=== PATIENT | female | born 1995 | race Caucasian/White ===

== ENCOUNTER → 2018-04-13 | Outpatient (CLI) | payer BC ==
--- NOTE | 2018-04-13 15:59 | US ---
EXAMINATION TYPE: US pelvic complete DATE OF EXAM: 04/13/2018 COMPARISON: NONE CLINICAL HISTORY: R10.2 Pelvic perineal pain. Recent UTI, pelvic and lower back pain with occasiona l sharp pains x 2 to 3 weeks TECHNIQUE: . Transabdominal sonographic images of the pelvis were acquired. Date of LMP: 04/04/2018 EXAM MEASUREMENTS: Uterus: 7.2 x 2.7 x 4.1 cm Endometrial Stripe: 0.5 cm Right Ovary: 3.3 x 1.8 x 2.5 cm Left Ovary: 3.3 x 1.5 x 2.3 cm 1. Uterus: anteverted, wnl 2. Endometrium: wnl 3. Right Ovary: wnl 4. Left Ovary: wnl 5. Bilateral Adnexa: wnl 6. Posterior cul-de-sac: wnl IMPRESSION: 1. Normal pelvic ultrasound.
== END | disposition home or self-care (01) ==
LOC: RADUSWWP 10:38
PROVIDERS: ATTEND Family Medicine
DX: R10.2 Pelvic and perineal pain (principal)
CPT/HCPCS: 76856